=== PATIENT | male | born 1965 ===

== ENCOUNTER 2022-03-01 09:15 | Outpatient (RCR) | payer BC, SELFPAY ==
--- NOTE | 2022-02-16 15:14 | PC.ADMIT ---
Patient is a 56 year old single male who was referred by [facility] where patient is currently residing. Patient was referred to [facility] d/t increase in depression and anxiety sxs. Patient newly sober from ETOH and just received his one month chip for sobriety. He is attending AA daily in the morning in addition to 4 nights a week. Patient reports he was recently hospitalized at [facility] and was discharged on 01/27/22. Reports his longest period of sobriety was 1.5 years prior to the pandemic. Patient reports he was drinking a pint of ETOH daily. Patient is alert and oriented x4. Presents with depressed mood and anxious affect. Denied SI currently. Stated he reached out to [facility] staff last week when feeling increasingly depressed. Stated this is new for him to reach out to others when feeling depressed as he usually isolates. Patient is at [facility] to work on his depression and anxiety sxs as well as work on continued sobriety. Medications reconciled with patient and patient's pharmacy. Medication education provided. Patient reports taking medications as prescribed.
[2022-02-16 15:18] VITALS: BMI 47.1
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
--- NOTE | 2022-02-19 08:23 | PC.NURSE ---
Case opened in treatment team
--- NOTE | 2022-02-24 12:37 | PC.NURSE ---
Faxed referral to [facility]
--- NOTE | 2022-02-25 12:07 | P.PNPSP_ITS ---
Subjective Subjective Date of Service: 02/25/22 Reason For Visit: anxiety,depression Medical Problems Affecting Mental Status: No Interim History: Describes mood as ?fairly decent ?. States that depression is improving. Reports continues with anxiety, states ?it is tense around here with roommate ?. Denies any cravings of alcohol. Attending AA meetings regularly. Denies any SI, HI, no safety concerns. States he may not be able to attend once we switch over to in person, due to transportation issues. Medication Compliance: Yes Side effects from medications: No Attending Groups: Yes Review of Systems Acute medical concerns: No Medical Review of Systems: unchanged Review of Systems Review of Systems Yes all other systems are reviewed and are negative Constitutional: Reports no additional constitutional complaints Mental Status Exam Mental Status Exam Narrative: Well-developed, overweight male, appears stated age. NAD. No evidence of any type of withdrawals observed. No tics or tremors, no abnormal movements. Appropriate grooming. Alert and attentive throughout interview. Ambulation not observed. Patient Appearance: Appropriate Patient Orientation: Person, Place, Time and Situation Level of Consciousness: Appropriate Patient Behavior: Appropriate, Cooperative and Good Eye Contact Mood Description: Anxious Affect Description: Anxious Patient Cognition Impaired: No Ability to Follow Directions: Good Speech Pattern: Clear, Appropriate and Coherent Memory Description: Intact Hallucinations: None Delusions: Not Present Thought Process: Intact Thought Content: positive for Intact Depressive Symptoms: Increased Anxiety, Difficulty Sleeping, Feelings of Guilt and Unhappiness Judgement: Fair Diagnostics Vital Signs (24Hr): BMI result Body Mass Index 47.1 Assessment & Plan Assessment & Plan (1) Major depressive disorder, recurrent severe without psychotic features: Status: Acute Code(s): F33.2 - Major depressive disorder, recurrent severe without psychotic features Assessment and Plan: Describes mood as ?fairly decent ?. States that depression is improving. Denies any cravings of alcohol. Attending AA meetings regularly. Denies any SI, HI, no safety concerns. Satisfied with current medication regimen. Reports that he has been finding groups in partial to be helpful. (2) Generalized anxiety disorder: Status: Acute Code(s): F41.1 - Generalized anxiety disorder Assessment and Plan: Reports continues with anxiety, states ?it is tense around here with roommate ?. Patient was referring to conflict he had earlier this week with his roommate. States that he understands because of this increased anxiety, and that he is focusing on healthy coping skills to help manage it. (3) Alcohol use disorder, severe, dependence: Status: Acute Code(s): F10.20 - Alcohol dependence, uncomplicated Assessment and Plan: Patient remains abstinent from alcohol at this time. Denies cravings. Patient continues with active participation in alcoholics anonymous. Plan 1. Continue with current [facility] plan of care. 2. Continue with current medication regimen as prescribed. 3. Follow-up as per protocol. Patient educated on: diagnosis, medication risk/benefits, substance abuse and therapeutic strategies Informed Consent: understands Reason for contiued partial hosp. stay Substantial Risk for: inability to function and rapid decompensation Certification I certify that partial hospital treatment is medically necessary due to the symptoms and problems resulting from the patient's mental illness and the failure to treat the patient at the partial hospital level of care would likely result in the patient requiring inpatient psychiatric care which could not be prevented at a less intensive level of care. I spent minutes with the patient and/or on the patient floor today, greater than?50% of which was spent counseling/coordinating care. Discharge Plan Discharge Attending provider: Oswaldo Jimenez Medications: No Action hydroxyzine pamoate 50 mg Capsule 50 mg PO QID PRN (Reason: moderate to severe anxiety) trazodone 150 mg Tablet 150 mg PO BEDTIME ziprasidone HCl [Geodon] 40 mg Capsule 40 mg PO BID Rx Instructions: give with food (meal/snack) propranolol 20 mg Tablet 20 mg PO TID spironolactone 50 mg Tablet 50 mg PO DAILY duloxetine 60 mg Capsule,Delayed Release(Dr/Ec) 60 mg PO DAILY gabapentin 300 mg Tablet 300 mg PO BID cholecalciferol (vitamin D3) [Vitamin D3] 25 mcg (1,000 unit) Tablet 50 mcg PO DAILY Rx Instructions: Take 2 tabs daily. albuterol sulfate 90 mcg/actuation Hfa Aerosol Inhaler 1 puff INHALATION Q4H PRN (Reason: Shortness Of Breath) Stand Alone Forms: Patient Portal Discharge page Telehealth Telehealth Location of provider rendering services: practice address Location of patient: address on file Patient Identification confirmed using: Name, : Yes Telehealth method: video Patient verbally consented to treatment: Yes Patient verbally consented to billing insurance company: Yes Patient informed of any privacy concerns related to visit: Yes Minutes spent on Phone/Video with Pt.: 15
--- NOTE | 2022-03-01 13:54 | PC.NURSE ---
Patient discharged routinely from the program today. He stated he has learned a lot from the program along with decreased depression and anxiety sxs. No safety concerns. Patient feeling ready for discharge. Reviewed patient medications with patient. Denied any concerns relating to his medications.
--- NOTE | 2022-03-01 14:04 | P.PNPSP_ITS ---
Subjective Subjective Date of Service: 03/01/22 Reason For Visit: anxiety,depression Medical Problems Affecting Mental Status: No Interim History: Describes mood as ?I feel good today ?. No SI/HI, no safety concerns. Reports current medication regimen working well. Feels ready for discharge from [facility]. Medication Compliance: Yes Side effects from medications: No Attending Groups: Yes Review of Systems Acute medical concerns: No Medical Review of Systems: unchanged Review of Systems Review of Systems Yes all other systems are reviewed and are negative Constitutional: Reports no additional constitutional complaints Mental Status Exam Mental Status Exam Patient Appearance: Appropriate Patient Orientation: Person, Place, Time and Situation Level of Consciousness: Appropriate Patient Behavior: Appropriate, Cooperative and Good Eye Contact Mood Description: Appropriate Affect Description: Appropriate Patient Cognition Impaired: No Ability to Follow Directions: Good Speech Pattern: Clear, Appropriate and Coherent Memory Description: Intact Hallucinations: None Delusions: Not Present Thought Process: Intact Thought Content: positive for Intact Depressive Symptoms: Increased Anxiety Judgement: Good Diagnostics Vital Signs (24Hr): BMI result Body Mass Index 47.1 Assessment & Plan Assessment & Plan (1) Major depressive disorder, recurrent severe without psychotic features: Status: Acute Code(s): F33.2 - Major depressive disorder, recurrent severe without psychotic features Assessment and Plan: Describes mood as ?I feel good today ?. No SI/HI, no safety concerns. Reports current medication regimen working well. Reports that groups have been helpful in learning new coping skills to deal with his depression and anxiety symptoms. (2) Generalized anxiety disorder: Status: Acute Code(s): F41.1 - Generalized anxiety disorder (3) Alcohol use disorder, severe, dependence: Status: Acute Code(s): F10.20 - Alcohol dependence, uncomplicated Assessment and Plan: Patient reports he remains abstinent from alcohol this time, actively involved in 12 step/alcoholics anonymous meetings. Plan 1. Patient appears stable for discharge from [facility] at this time. 2. Patient to follow-up with outpatient providers going forward. Patient educated on: diagnosis, medication risk/benefits, substance abuse and therapeutic strategies Informed Consent: understands Reason for contiued partial hosp. stay Substantial Risk for: stable for discharge Certification I certify that partial hospital treatment is medically necessary due to the symptoms and problems resulting from the patient's mental illness and the failure to treat the patient at the partial hospital level of care would likely result in the patient requiring inpatient psychiatric care which could not be prevented at a less intensive level of care. I spent minutes with the patient and/or on the patient floor today, greater than?50% of which was spent counseling/coordinating care. Discharge Plan Discharge Attending provider: Oswaldo Jimenez Additional Instructions: Intake for therapy at [facility] office 03/11/22 @ 10am Medications: No Action hydroxyzine pamoate 50 mg Capsule 50 mg PO QID PRN (Reason: moderate to severe anxiety) trazodone 150 mg Tablet 150 mg PO BEDTIME ziprasidone HCl [Geodon] 40 mg Capsule 40 mg PO BID Rx Instructions: give with food (meal/snack) propranolol 20 mg Tablet 20 mg PO TID spironolactone 50 mg Tablet 50 mg PO DAILY duloxetine 60 mg Capsule,Delayed Release(Dr/Ec) 60 mg PO DAILY gabapentin 300 mg Tablet 300 mg PO BID cholecalciferol (vitamin D3) [Vitamin D3] 25 mcg (1,000 unit) Tablet 50 mcg PO DAILY Rx Instructions: Take 2 tabs daily. albuterol sulfate 90 mcg/actuation Hfa Aerosol Inhaler 1 puff INHALATION Q4H PRN (Reason: Shortness Of Breath) Stand Alone Forms: Patient Portal Discharge page Telehealth Telehealth Location of provider rendering services: practice address Location of patient: address on file Patient Identification confirmed using: Name, : Yes Telehealth method: video Patient verbally consented to treatment: Yes Patient verbally consented to billing insurance company: Yes Patient informed of any privacy concerns related to visit: Yes Minutes spent on Phone/Video with Pt.: 15
== END 2022-03-01 23:59 | disposition home or self-care (01) ==
LOC: HO.PHPA 09:15
PROVIDERS: Visit Provider Psychiatry & Neurology Psychiatry
DX: F33.2 Major depressive disorder, recurrent severe without psychotic features (principal); F41.1 Generalized anxiety disorder; F10.20 Alcohol dependence, uncomplicated; Z79.899 Other long term (current) drug therapy
CPT/HCPCS: 90791; 90853